=== PATIENT | female | born 1940 | race Caucasian/White ===

== ENCOUNTER 2016-12-01 04:36 | Emergency (ER) | payer OTHER, MEDICARE ==
[~2016-12-01 04:36] MED LIST: /AMIT25TA PO; /CELE20CA PO; /ESOM40CA PO; ACET650T PO; BENICAR PO; LIVA4TAB PO; METF-415 PO; TRAD5TAB PO
[2016-12-01 05:41] LABS: BASO % 0.8 % (0.0-1.0); EOS # 0.2 K/mm3 (0.0-0.50); EOS % 2.9 % (0.0-3.0); LARGE UNSTAINED CELL # 0.1 K/mm3 (0.0-0.4); LARGE UNSTAINED CELL % 2.2 % (0.0-4.0); LYMPH # 0.9 K/mm3 (1.5-4.5); LYMPH % 17.9 % (24.0-44.0); MEAN CORPUSCULAR HEMOGLOBIN 27.2 pg (27.0-33.0); MEAN CORPUSCULAR HGB CONC 33.3 g/dl (32.0-36.5); MEAN CORPUSCULAR VOLUME 81.5 fl (80.0-96.0); MONO # 0.4 K/mm3 (0.0-0.8); MONO % 6.8 % (0.0-5.0); NEUTROPHILS # 3.6 K/mm3 (1.8-7.7); NEUTROPHILS % 69.3 % (36.0-66.0); PLATELET COUNT, AUTOMATED 221 k/mm3 (150-450); RED CELL DISTRIBUTION WIDTH 13.7 % (11.5-14.5); WHITE BLOOD COUNT 5.2 K/mm3 (4.0-10.0)
[2016-12-01 06:07] LABS: ALBUMIN 3.9 GM/DL (3.2-5.2); ALBUMIN/GLOBULIN RATIO 1.15 (1.00-1.93); ALKALINE PHOSPHATASE 102 U/L (45-117); ALT/SGPT 18 U/L (12-78); AMYLASE 71 U/L (25-115); ANION GAP 9 MEQ/L (8-16); AST/SGOT 12 U/L (15-37); BILIRUBIN,DIRECT < 0.1 MG/DL (0.0-0.2); BILIRUBIN,TOTAL 0.4 MG/DL (0.2-1.0); BLOOD UREA NITROGEN 16 MG/DL (7-18); CARBON DIOXIDE LEVEL 27 MEQ/L (21-32); CHLORIDE LEVEL 103 MEQ/L (98-107); CREATININE FOR GFR 1.12 MG/DL (0.55-1.02); GLOMERULAR FILTRATION RATE 50.5 (>39); GLUCOSE, FASTING 167 MG/DL (83-110); POTASSIUM SERUM 3.7 MEQ/L (3.5-5.1); SODIUM LEVEL 139 MEQ/L (136-145); TOTAL PROTEIN 7.3 GM/DL (6.4-8.2)
[2016-12-01] MEDS ORDERED: ONDANSETRON 4MG/2ML VIAL (J2405) As Ordered ONE (06:20)
[2016-12-01] MEDS ORDERED: MORPHINE 4 MG/ML 1ML SYRINGE As Ordered ONE (06:21)
[2016-12-01] MEDS ORDERED: ISOVUE-370 76% 100ML VIAL (Q9967) As Ordered ONE (07:21)
[2016-12-01] MEDS ORDERED: GI COCKTAIL 50ML BTL(HYOSCYAMINE/MAALOX/LIDOCAINE VISCOUS)(1:3:1) As Ordered ONE (08:57)
[2016-12-01] MEDS ORDERED: PANTOPRAZOLE 40MG TAB (PROTONIX) As Ordered ONE (09:30)
--- NOTE | 2016-12-01 09:39 | EDDOCDS ---
Nurse's Notes [facility] Name: Karo Lopez Age: 76 yrs Sex: Female : 1940 Arrival Date: 12/01/2016 Time: 04:36 Bed 8 Private MD: Diagnosis: Abdominal and pelvic pain;Gastritis and duodenitis-rule out Presentation: 12/01 04:44 Presenting complaint: Patient states: Abdominal pain for 3 weeks from chest down to kmg1 pelvic bone. No vomiting. Diarrhea a couple of times. Hot and cold flashes. Suicide/Homicide risk assessment- the patient denies having any suicidal and/or homicidal ideations and does not present with any other emotional, behavioral or mental health complaints. 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 Transition of care:. 04:44 Acuity: MARIO Level 3 km 04:44 Method Of Arrival: Walkin/Carried/Asstd [facility] 09:37 Adult Sepsis Screening: The patient does not have new or worsening altered mentation. hs1 Patient's respiratory rate is less than 22. Systolic blood pressure is greater than 100. Patient has a qSOFA score of 0- Negative Sepsis Screen. Triage Assessment: 04:54 General: Appears uncomfortable, well nourished, well groomed, Behavior is appropriate kmg1 for age, cooperative. Pain: Location: abdomen Pain currently is 10 out of 10 on a pain scale. GI: Reports lower abdominal pain, upper abdominal pain. Historical: - Allergies: Codeine Sulfatehallucinations; Valium; - Home Meds: 1. metformin 1,000 mg Oral tab 1 tab 2 times per day (Last dose: 11/30/2016) 2. amitriptyline 25 mg Oral tab 1 tab once daily (Last dose: 11/30/2016) 3. Hydrochlorothiazide Oral 1 tab once daily (Last dose: 11/30/2016) 4. Plavix 75 mg Oral tab 1 tab once daily (Last dose: 11/30/2016) 5. aspirin 81 mg Oral chew 1 tab once daily (Last dose: 11/30/2016) 6. tramadol 50 mg Oral tab 1 tab every 4-6 hours as needed - PMHx: CVA; Pacemaker; Hypertension; Diabetes - NIDDM: controlled; - PSHx: Pacemaker placement; Stone reteival with stents; Carpal Tunnel Repair- Bilateral; Cataract Surgery- Bilateral; Left axilla lump excision; - Social history: Smoking status: Patient states former smoker of tobacco. No barriers to communication noted, The patient speaks fluent Mohawk, Speaks appropriately for age. - Family history: Not pertinent. - : The pt / caregiver states he / she is on anticoagulants: Plavix. Home medication list is obtained from the patient. - Exposure Risk Screening:: None identified. Screenin:37 Screening information is obtained from the patient. Fall risk: No risks identified. tm5 Assistance ADL's: requires no assistance with activities of daily living. Abuse/DV Screen: The patient / caregiver reports he/she is: not in a situation that causes fear, pain or injury. Nutritional screening: No deficits noted. Advance Directives: There is no active DNR order. home support is adequate. Assessment: 05:38 General: Appears in no apparent distress, Behavior is appropriate for age, cooperative. tm5 Pain: Location: abdomen Pain currently is 10 out of 10 on a pain scale. Quality of pain is described as crampy, sharp, Pain began 3 weeks ago. Neurological: Level of Consciousness is awake, alert, Oriented to person, place, time. Cardiovascular: Rhythm is sinus rhythm No ectopy. Respiratory: Airway is patent Respiratory effort is even, unlabored, Respiratory pattern is regular, symmetrical, Breath sounds are clear bilaterally. GI: Abdomen is non- distended Bowel sounds present X 4 quads. Abd is soft X 4 quads Abd is tender to palpation X 4 quads. : No deficits noted. Derm: Skin is pink, warm & dry. 06:47 General: pt stated that she hasn't had a good bowel movement in over a week or so . tm5 07:35 General: Appears in no apparent distress, Behavior is appropriate for age, cooperative. hs1 Cardiovascular: Rhythm is sinus rhythm No ectopy. Respiratory: No deficits noted. GI: Reports epigastric pain. : No deficits noted. Derm: Skin is pink, warm & dry. normal. 08:42 Reassessment: Patient appears in no apparent distress at this time. Neurological: No hs1 deficits noted. Cardiovascular: No deficits noted. Respiratory: Airway is patent Respiratory effort is even, unlabored, Respiratory pattern is regular, symmetrical. Derm: No deficits noted. 09:36 Reassessment: Patient appears in no apparent distress at this time. Patient denies pain hs1 at this time. Patient states feeling better. Patient states symptoms have improved. Derm: Skin is pink, warm & dry. normal. Vital Signs: 04:54 BP 135 / 79; Pulse 81; Resp 18; Temp 97.5(TE); Pulse Ox 98% on R/A; Weight 58.97 kg km (R); Height 5 ft. 0 in. (152.40 cm) (R); Pain 10/10; 06:07 BP 181 / 89 (auto/); tm5 06:07 Pulse 76 MON; Resp 18 S; Pulse Ox 99% on R/A; Pain 7/10; tm5 06:37 BP 171 / 80 (auto/); tm5 06:37 Pulse 70 MON; Resp 18 S; Pulse Ox 98% on R/A; tm5 07:07 BP 181 / 79 (auto/); hs1 07:07 Pulse 68 MON; Pulse Ox 96% ; hs1 08:14 Pulse 70 MON; Pulse Ox 97% ; hs1 08:15 BP 157 / 75 (auto/); Resp 18; hs1 04:54 Body Mass Index 25.39 (58.97 kg, 152.40 cm) [facility] Vitals: 04:54 Log In Time: December 01, 2016 at 04:39. [facility] ED Course: 04:38 Patient visited by Stephany Cheema Reg. hs2 04:38 Patient moved to Waiting hs2 04:46 Triage Initiated [facility] 04:57 Patient moved to 8 km 05:36 Patient visited by Marci Ramesh RN. tm5 05:36 -Blood Culture Sent. tm5 05:36 Amylase Sent. tm5 05:36 Basic Metabolic Profile Sent. tm5 05:36 CBC with Diff Sent. tm5 05:37 Cardiac Injury Profile Sent. tm5 05:37 Lipase Sent. tm5 05:37 Liver Profile Sent. tm5 05:37 Troponin Sent. tm5 05:37 Inserted saline lock: 20 gauge in left forearm and blood collected. The patient tm5 tolerated the procedure well. Labs/Blood culture drawn. 05:38 Awaiting ED physician evaluation. tm5 05:38 The patient / caregiver is instructed regarding the plan of care and ED course. Cardiac tm5 monitor on. Pulse ox on. NIBP on. Warm blanket given. Pillow given. 06:01 BLOOD CULTURES Sent. jmv 06:08 Mehdi Rodriguez DO is Attending Physician. mm11 06:08 Patient visited by Mehdi Rodriguez DO. mm11 06:17 Patient visited by Mehdi Rodriguez DO. mm11 06:45 [facility] Payment Agreement was scanned into [employer] and attached to record. hs2 06:50 Patient name changed from Karo\S\\S\Lopez\S\ to Karo\S\C\S\Lopez. EDMS 07:19 Patient visited by Mehdi Rodirguez DO. mm11 07:21 Patient visited by Donna Monet RN. hs1 07:21 Donna Monet RN is Primary Nurse. hs1 07:35 Urinalysis Sent. jrd 07:35 Urine Culture Sent. jrd 07:52 Patient visited by Donna Monet RN. hs1 08:41 Patient visited by Mehdi Rodriguez DO. mm11 09:21 Attending Physician role handed off by Mehdi Rodriguez DO ml 09:21 Marium Luna MD is Attending Physician. ml 09:37 Discontinued IV lock intact, bleeding controlled, pressure dressing applied, No hs1 redness/swelling at site. No procedures done that require assistance. Administered Medications: 06:25 Drug: morphine 4 mg [morphine 4 mg/mL intravenous cartridge (1 mL)] Route: IVP; Site: tm5 left forearm; 06:25 Drug: Ondansetron 4 mg [ondansetron HCl 2 mg/mL intravenous solution (2 mL)] Route: tm5 IVP; Site: left forearm; 09:00 Drug: GI Cocktail - (Alum-Mag Hydroxide-Simeth Suspension 225 mg-200 mg-25 mg/5 mL 30 hs1 ml, Lidocaine Liquid 2 % 10 ml, Hyoscyamine Liquid 10 ml) Route: PO; 09:35 Drug: Pantoprazole 40 mg [pantoprazole 40 mg tablet,delayed release (1 tabs)] Route: PO;hs1 Order Results: Lab Order: Amylase; SPEC'M 12/01/16 05:34 Test: AMYLASE; Value: 71; Range: 25-115; Units: U/L; Status: F Lab Order: Basic Metabolic Profile; SPEC'M 12/01/17 05:34 Test: GLUCOSE, FASTING; Value: 167; Range: 83-110; Abnormal: Above high normal; Units: MG/DL; Status: F Test: BLOOD UREA NITROGEN; Value: 16; Range: 7-18; Units: MG/DL; Status: F Test: CREATININE FOR GFR; Value: 1.12; Range: 0.55-1.02; Abnormal: Above high normal; Units: MG/DL; Status: F Test: GLOMERULAR FILTRATION RATE; Value: 50.5; Range: >39; Status: F Test: SODIUM LEVEL; Value: 139; Range: 136-145; Units: MEQ/L; Status: F Test: POTASSIUM SERUM; Value: 3.7; Range: 3.5-5.1; Units: MEQ/L; Status: F Test: CHLORIDE LEVEL; Value: 103; Range: 98-107; Units: MEQ/L; Status: F Test: CARBON DIOXIDE LEVEL; Value: 27; Range: 21-32; Units: MEQ/L; Status: F Test: ANION GAP; Value: 9; Range: 8-16; Units: MEQ/L; Status: F Test: CALCIUM LEVEL; Value: 10.0; Range: 8.8-10.2; Units: MG/DL; Status: F Test Note: ; Units are mL/min/1.73 m2 Chronic Kidney Disease Staging per NKF: Stage I & II GFR >=60 Normal to Mildly Decreased Stage III GFR 30-59 Moderately Decreased Stage IV GFR 15-29 Severely Decreased Stage V GFR <15 Very Little GFR Left ESRD GFR <15 on TRAFFIC SIGN ERECTION SUPERVISOR Lab Order: CBC with Diff; [facility]12/01/16 05:34 Test: WHITE BLOOD COUNT; Value: 5.2; Range: 4.0-10.0; Units: K/mm3; Status: F Test: RED BLOOD COUNT; Value: 5.09; Range: 4.00-5.40; Units: M/mm3; Status: F Test: HEMOGLOBIN; Value: 13.8; Range: 12.0-16.0; Units: g/dl; Status: F Test: HEMATOCRIT; Value: 41.4; Range: 36.0-47.0; Units: %; Status: F Test: MEAN CORPUSCULAR VOLUME; Value: 81.5; Range: 80.0-96.0; Units: fl; Status: F Test: MEAN CORPUSCULAR HEMOGLOBIN; Value: 27.2; Range: 27.0-33.0; Units: pg; Status: F Test: MEAN CORPUSCULAR HGB CONC; Value: 33.3; Range: 32.0-36.5; Units: g/dl; Status: F Test: RED CELL DISTRIBUTION WIDTH; Value: 13.7; Range: 11.5-14.5; Units: %; Status: F Test: PLATELET COUNT, AUTOMATED; Value: 221; Range: 150-450; Units: k/mm3; Status: F Test: NEUTROPHILS %; Value: 69.3; Range: 36.0-66.0; Abnormal: Above high normal; Units: %; Status: F Test: LYMPH %; Value: 17.9; Range: 24.0-44.0; Abnormal: Below low normal; Units: %; Status: F Test: MONO %; Value: 6.8; Range: 0.0-5.0; Abnormal: Above high normal; Units: %; Status: F Test: EOS %; Value: 2.9; Range: 0.0-3.0; Units: %; Status: F Test: BASO %; Value: 0.8; Range: 0.0-1.0; Units: %; Status: F Test: LARGE UNSTAINED CELL %; Value: 2.2; Range: 0.0-4.0; Units: %; Status: F Test: NEUTROPHILS #; Value: 3.6; Range: 1.8-7.7; Units: K/mm3; Status: F Test: LYMPH #; Value: 0.9; Range: 1.5-4.5; Abnormal: Below low normal; Units: K/mm3; Status: F Test: MONO #; Value: 0.4; Range: 0.0-0.8; Units: K/mm3; Status: F Test: EOS #; Value: 0.2; Range: 0.0-0.50; Units: K/mm3; Status: F Test: BASO #; Value: 0.0; Range: 0.0-0.2; Units: K/mm3; Status: F Test: LARGE UNSTAINED CELL #; Value: 0.1; Range: 0.0-0.4; Units: K/mm3; Status: F Lab Order: Cardiac Injury Profile; [facility]12/01/16 05:34 Test: CPK CREATINE PHOSPHOKINASE; Value: 62; Range: 26-192; Units: U/L; Status: F Test: CK-MB VALUE MASS; Value: 2.4; Range: 0.0-3.6; Units: NG/ML; Status: F Test: MB/CK RELATIVE INDEX; Value: 3.87; Range: < OR =4; Status: F Test Note: ; DIAGNOSIS CRITERIA MMB ng/ml Relative Index (RI) NON-AMI < or = 5 N/A [place] > 5 < or = 4 AMI > 5 > 4 Lab Order: Lipase; 12/01/16 05:34 Test: LIPASE; Value: 277; Range: 73-393; Units: U/L; Status: F Lab Order: Liver Profile; 12/01/16 05:34 Test: AST/SGOT; Value: 12; Range: 15-37; Abnormal: Below low normal; Units: U/L; Status: F Test: ALT/SGPT; Value: 18; Range: 12-78; Units: U/L; Status: F Test: ALKALINE PHOSPHATASE; Value: 102; Range: 45-117; Units: U/L; Status: F Test: BILIRUBIN,TOTAL; Value: 0.4; Range: 0.2-1.0; Units: MG/DL; Status: F Test: BILIRUBIN,DIRECT; Value: < 0.1; Range: 0.0-0.2; Units: MG/DL; Status: F Test: TOTAL PROTEIN; Value: 7.3; Range: 6.4-8.2; Units: GM/DL; Status: F Test: ALBUMIN; Value: 3.9; Range: 3.2-5.2; Units: GM/DL; Status: F Test: ALBUMIN/GLOBULIN RATIO; Value: 1.15; Range: 1.00-1.93; Status: F Lab Order: Troponin; 12/01/16 05:34 Test: TROPONIN I; Value: < 0.02; Range: < 0.10; Units: NG/ML; Status: F Test Note: ; Troponin I Reference Interval for Siemens Wrapp LOCI: 99th Percentile= 0.00-0.045 ng/ml Risk Stratification: <= 0.10 ng/ml Decreased Risk for Adverse Clinical Events. 0.10-1.50 ng/ml Increased Risk for Adverse Clinical Events. Evaluation of additional criterion and/or repeat testing in 2-6 hours is suggested to rule out myocardial damage. >= 1.50 ng/ml Indicative of Myocardial Injury. Lab Order: Urinalysis; SPEC'M 12/01/16 07:29 Test: APPEARANCE, URINE; Value: CLEAR; Range: CLEAR; Status: F Test: COLOR, URINE; Value: STRAW; Range: YELLOW; Status: F Test: PH,URINE; Value: 7.0; Range: 5.0-9.0; Units: UNITS; Status: F Test: SPECIFIC GRAVITY URINE AUTO; Value: 1.005; Range: 1.002-1.035; Status: F Test: PROTEIN, URINE AUTO; Value: NEGATIVE; Range: NEGATIVE; Units: mg/dL; Status: F Test: GLUCOSE, URINE (UA) AUTO; Value: NEGATIVE; Range: NEGATIVE; Units: mg/dL; Status: F Test: KETONE, URINE AUTO; Value: NEGATIVE; Range: NEGATIVE; Units: mg/dL; Status: F Test: UROBILINOGEN, URINE AUTO; Value: 0.2; Range: 0.0-2.0; Units: mg/dL; Status: F Test: BILIRUBIN, URINE AUTO; Value: NEGATIVE; Range: NEGATIVE; Status: F Test: NITRITE, URINE AUTO; Value: NEGATIVE; Range: NEGATIVE; Status: F Test: LEUKOCYTE ESTERASE, URINE AUTO; Value: NEGATIVE; Range: NEGATIVE; Status: F Test: BLOOD, URINE BLOOD; Value: NEGATIVE; Range: NEGATIVE; Status: F Test: WBC, URINE AUTO; Value: 0; Range: 0-3; Units: /HPF; Status: F Test: RBC, URINE AUTO; Value: 0; Range: 0-3; Units: /HPF; Status: F Test: BACTERIA, URINE AUTO; Value: 1+; Range: NEGATIVE; Abnormal: Above high normal; Status: F Test: SQUAMOUS EPITHELIAL CELL UR AU; Value: 0; Range: 0-6; Units: /HPF; Status: F Test: HYALINE CAST, URINE AUTO; Value: 0; Range: 0-1; Units: /LPF; Status: F Outcome: 09:25 Discharge ordered by Provider. 09:37 Discharge Assessment: Patient awake, alert and oriented x 3. No cognitive and/or hs1 functional deficits noted. Patient verbalized understanding of disposition instructions. patient administered narcotics - yes. Pt provided with safe discharge. The following High Risk Discharge criteria are identified: None. Discharged to home ambulatory. Condition: stable. Discharge instructions given to patient, Instructed on discharge instructions, follow up and referral plans. medication usage, Demonstrated understanding of instructions, medications, Pt was receptive of discharge instructions/ teaching. Prescriptions given X 1. CT Study completed. Property sent home with patient. 09:38 Patient left the ED. hs1 Signatures: Dispatcher [employer] EDMS Marium Luna MD MD Ramona Parish, RN RN kmg1 Mehdi Rodriguez, DO mm11 Donna Monet RN RN hs1 George Pedersen, GYPSUM CALCINER GYPSUM CALCINER d Stephany Cheema, Reg Reg hs2 Bear Kee, GYPSUM CALCINER GYPSUM CALCINER Marci Corea,RN RN tm5 MTDD
--- NOTE | 2016-12-01 09:39 | EDDOCDS ---
Physician Documentation [facility] Name: Karo Lopez Age: 76 yrs Sex: Female : 1940 Arrival Date: 12/01/2016 Time: 04:36 Bed 8 Private MD: Disposition: 12/01/16 09:25 Discharged to Home/Self Care. Impression: Abdominal and pelvic pain, Gastritis and duodenitis - rule out. - Condition is Stable. - Discharge Instructions: Abdominal Pain, Adult. - Prescriptions for Protonix 40 mg Oral Tablet - take 1 tablet by ORAL route once daily; 30 tablet. - Medication Reconciliation, Local Pharmacy Hours form. - Follow up: Private Physician; When: 1 - 2 days. - Problem is new. - Symptoms have improved. - Notes[facility]return if worsenig symtoms Historical: - Allergies: Codeine Sulfatehallucinations; Valium; - Home Meds: 1. metformin 1,000 mg Oral tab 1 tab 2 times per day (Last dose: 11/30/2016) 2. amitriptyline 25 mg Oral tab 1 tab once daily (Last dose: 11/30/2016) 3. Hydrochlorothiazide Oral 1 tab once daily (Last dose: 11/30/2016) 4. Plavix 75 mg Oral tab 1 tab once daily (Last dose: 11/30/2016) 5. aspirin 81 mg Oral chew 1 tab once daily (Last dose: 11/30/2016) 6. tramadol 50 mg Oral tab 1 tab every 4-6 hours as needed - PMHx: CVA; Pacemaker; Hypertension; Diabetes - NIDDM: controlled; - PSHx: Pacemaker placement; Stone reteival with stents; Carpal Tunnel Repair- Bilateral; Cataract Surgery- Bilateral; Left axilla lump excision; - Social history: Smoking status: Patient states former smoker of tobacco. No barriers to communication noted, The patient speaks fluent Chinese, Speaks appropriately for age. - Family history: Not pertinent. - : The pt / caregiver states he / she is on anticoagulants: Plavix. Home medication list is obtained from the patient. - Exposure Risk Screening:: None identified. Vital Signs: 12/01 04:54 BP 135 / 79; Pulse 81; Resp 18; Temp 97.5(TE); Pulse Ox 98% on R/A; Weight 58.97 kg / kmg1 130.01 lbs (R); Height 5 ft. 0 in. (152.40 cm) (R); Pain 10/10; 06:07 BP 181 / 89 (auto/); tm5 06:07 Pulse 76 MON; Resp 18 S; Pulse Ox 99% on R/A; Pain 7/10; tm5 06:37 BP 171 / 80 (auto/); tm5 06:37 Pulse 70 MON; Resp 18 S; Pulse Ox 98% on R/A; tm5 07:07 BP 181 / 79 (auto/); hs1 07:07 Pulse 68 MON; Pulse Ox 96% ; hs1 08:14 Pulse 70 MON; Pulse Ox 97% ; hs1 08:15 BP 157 / 75 (auto/); Resp 18; hs1 04:54 Body Mass Index 25.39 (58.97 kg, 152.40 cm) kmg1 MDM: 05:10 -Blood Culture (Adults Only), peripheral from different site, or from device/port/PICC mm11 etc. if present ordered. 05:10 IV Saline Lock ordered. mm11 05:10 Undress patient appropriately for examination ordered. mm11 05:11 Amylase Ordered. EDMS 05:11 Basic Metabolic Profile Ordered. EDMS 05:11 CBC with Diff Ordered. EDMS 05:11 Cardiac Injury Profile Ordered. EDMS 05:11 Lipase Ordered. EDMS 05:11 Liver Profile Ordered. EDMS 05:11 Troponin Ordered. EDMS 05:11 Urinalysis Ordered. EDMS 05:11 -Blood Culture Ordered. EDMS 05:11 Urine Culture Ordered. EDMS 05:12 NOTHING BY MOUTH+DIET ordered. EDMS 05:12 ECG WITH READING ER PHYS+CARDIAG ordered. EDMS 05:13 -Blood Culture (Adults Only), peripheral from different site, or from device/port/PICC jlm etc. if present complete. 05:14 BLOOD CULTURES Ordered. EDMS 06:09 CBC with Diff Reviewed. mm11 06:17 Basic Metabolic Profile Reviewed. mm11 06:17 Liver Profile Reviewed. mm11 06:17 Amylase Reviewed. mm11 06:17 Cardiac Injury Profile Reviewed. mm11 06:17 Lipase Reviewed. mm11 06:17 Troponin Reviewed. mm11 06:18 morphine 4 mg IVP every 30 minutes; Document pain score/vitals after each dose (Hold if mm11 SBP < 90mmHg) x2 ordered. 06:18 Ondansetron 4 mg IVP once ordered. mm11 06:45 Financial registration complete. hs2 06:45 [facility] Payment Agreement was scanned into [employer] and attached to record. hs2 07:14 CT ABD & PELVIS: IV Contrast Only Ordered. EDMS 08:32 Urinalysis Reviewed. mm11 08:41 GI Cocktail - (Alum-Mag Hydroxide-Simeth 30 ml, Lidocaine 10 ml, Hyoscyamine 10 ml) PO mm11 once; Pre-mixed 50mL unit dose ordered. 09:24 Pantoprazole 40 mg PO once ordered. ml Administered Medications: 06:25 Drug: morphine 4 mg [morphine 4 mg/mL intravenous cartridge (1 mL)] Route: IVP; Site: tm5 left forearm; 06:25 Drug: Ondansetron 4 mg [ondansetron HCl 2 mg/mL intravenous solution (2 mL)] Route: tm5 IVP; Site: left forearm; 09:00 Drug: GI Cocktail - (Alum-Mag Hydroxide-Simeth Suspension 225 mg-200 mg-25 mg/5 mL 30 hs1 ml, Lidocaine Liquid 2 % 10 ml, Hyoscyamine Liquid 10 ml) Route: PO; 09:35 Drug: Pantoprazole 40 mg [pantoprazole 40 mg tablet,delayed release (1 tabs)] Route: PO;hs1 Signatures: Dispatcher [employer] EDMS Marium Luna MD MD Ramona Parish, RN RN kmg1 Mehdi Rodriguez, DO mm11 Donna Monet RN RN hs1 Zaida Forrest, [employer] jl Stephany Cheema, Reg Reg hs2 Marci Ramesh,GREGORIO PERKINS tm5 The chart was reviewed and I authenticate all verbal orders and agree with the evaluation and treatment provided.Attachments: 06:45 [facility] hs[facility]
--- NOTE | 2016-12-01 12:41 | REP ---
CT ABDOMEN AND PELVIS WITH IV CONTRAST: 12/01/2016. Clinical history: Generalized abdominal pain. Prior renal stone disease. Technique: No oral contrast per request. Bolus of 100 mL Isovue 370 scanning through the abdomen pelvis with coronal and sagittal reconstructions. CT abdomen: Lung bases show some dependent atelectasis without infiltrate or effusion. Heart is not enlarged. There is no pericardial thickening or effusion but the left atrium is mildly prominent. Dual lead pacer is noted. I see no definite hiatal hernia. There is no hepatosplenomegaly, focal hepatic or splenic mass nor intrahepatic biliary dilatation. No adjacent ascites in the upper abdomen. The gallbladder shows no calcified stone or mass. Pancreas shows no mass, ductal dilatation, calcification, peripancreatic fluid or adenopathy. No infiltration of the peripancreatic fat. Adrenal glands unremarkable. Kidneys show lobation bilaterally without hydronephrosis, stones, cyst, solid mass or perinephric fluid. Extrarenal pelves are noted bilaterally. Ureters show normal course to the bladder without dilatation or stone on either side. The aorta has diffuse atherosclerotic calcifications but no aneurysm or dissection. No periaortic or other retroperitoneal pathologic sized lymphadenopathy. Small bowel loops are fluid filled without dilatation or inflammatory changes. Appendix is seen and normal. There are scattered diverticula in the colon without signs of diverticulitis. Lung window review shows no evidence of perforation or free air. Degenerative disc changes with vacuum phenomenon and L3-4 and L4-5 and fusion at L5-S1 disc level. There is a few millimeters of anterolisthesis of L4 on 5 due to facet arthritis. No spondylolysis. No compression deformities. Visualized ribs are intact. CT pelvis: The hips show degenerative changes with joint space narrowing and marginal osteophytes. No fracture or destructive lesion of the hips, acetabuli, ischia, iliac bones or sacrum. SI joints with minimal degenerative change. The left colon diverticulosis extending into the sigmoid but no sign of diverticulitis, colitis, stricture or mass. The bladder is only minimally filled therefore its wall thickness difficult to manager talent acquisition. There is no stone or mass. Uterus is diminutive with some calcifications and anteverted. No adnexal or other pelvic mass. There is no ventral or inguinal hernia nor pathologic sized inguinal adenopathy. Iliac and femoral vessels with vascular calcification but no occlusion. Impression: 1. Diverticulosis without diverticulitis. No abscess, ascites, mass or free air. 2. Vascular calcifications of the aorta and branches without aneurysm or occlusion. 3. Liver, spleen, gallbladder, pancreas, adrenal glands and kidneys without acute finding. 4. No hydronephrosis, renal or ureteral stone. Bladder nearly empty. 5. Degenerative disc changes and facet arthritis lumbar spine without compression deformity or destructive lesion. Signed by Regino Garcia MD 12/01/2016 07:17 P
--- NOTE | 2016-12-01 19:27 | ECGEPIP ---
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
--- NOTE | 2016-12-03 10:38 | EDDOCDS ---
Physician Documentation [facility] Name: Karo Lopez Age: 76 yrs Sex: Female : 1940 Arrival Date: 12/01/2016 Time: 04:36 Bed 8 Private MD: Disposition: 12/01/16 09:25 Discharged to Home/Self Care. Impression: Abdominal and pelvic pain, Gastritis and duodenitis - rule out. - Condition is Stable. - Discharge Instructions: Abdominal Pain, Adult. - Prescriptions for Protonix 40 mg Oral Tablet - take 1 tablet by ORAL route once daily; 30 tablet. - Medication Reconciliation, Local Pharmacy Hours form. - Follow up: Private Physician; When: 1 - 2 days. - Problem is new. - Symptoms have improved. - Notes[facility]return if worsenig symtoms Historical: - Allergies: Codeine Sulfatehallucinations; Valium; - Home Meds: 1. metformin 1,000 mg Oral tab 1 tab 2 times per day (Last dose: 11/30/2016) 2. amitriptyline 25 mg Oral tab 1 tab once daily (Last dose: 11/30/2016) 3. Hydrochlorothiazide Oral 1 tab once daily (Last dose: 11/30/2016) 4. Plavix 75 mg Oral tab 1 tab once daily (Last dose: 11/30/2016) 5. aspirin 81 mg Oral chew 1 tab once daily (Last dose: 11/30/2016) 6. tramadol 50 mg Oral tab 1 tab every 4-6 hours as needed - PMHx: CVA; Pacemaker; Hypertension; Diabetes - NIDDM: controlled; - PSHx: Pacemaker placement; Stone reteival with stents; Carpal Tunnel Repair- Bilateral; Cataract Surgery- Bilateral; Left axilla lump excision; - Social history: Smoking status: Patient states former smoker of tobacco. No barriers to communication noted, The patient speaks fluent American, Speaks appropriately for age. - Family history: Not pertinent. - : The pt / caregiver states he / she is on anticoagulants: Plavix. Home medication list is obtained from the patient. - Exposure Risk Screening:: None identified. Vital Signs: 12/01 04:54 BP 135 / 79; Pulse 81; Resp 18; Temp 97.5(TE); Pulse Ox 98% on R/A; Weight 58.97 kg / kmg1 130.01 lbs (R); Height 5 ft. 0 in. (152.40 cm) (R); Pain 10/10; 06:07 BP 181 / 89 (auto/); tm5 06:07 Pulse 76 MON; Resp 18 S; Pulse Ox 99% on R/A; Pain 7/10; tm5 06:37 BP 171 / 80 (auto/); tm5 06:37 Pulse 70 MON; Resp 18 S; Pulse Ox 98% on R/A; tm5 07:07 BP 181 / 79 (auto/); hs1 07:07 Pulse 68 MON; Pulse Ox 96% ; hs1 08:14 Pulse 70 MON; Pulse Ox 97% ; hs1 08:15 BP 157 / 75 (auto/); Resp 18; hs1 08:45 BP 161 / 77 (auto/); hs1 08:45 Pulse 72 MON; Pulse Ox 99% ; hs1 09:15 BP 185 / 88 (auto/); hs1 09:15 Pulse 72 MON; Resp 18; Temp 98.2(O); Pulse Ox 95% ; Pain 0/10; hs1 04:54 Body Mass Index 25.39 (58.97 kg, 152.40 cm) kmg1 MDM: 05:10 -Blood Culture (Adults Only), peripheral from different site, or from device/port/PICC mm11 etc. if present ordered. 05:10 IV Saline Lock ordered. mm11 05:10 Undress patient appropriately for examination ordered. mm11 05:11 Amylase Ordered. EDMS 05:11 Basic Metabolic Profile Ordered. EDMS 05:11 CBC with Diff Ordered. EDMS 05:11 Cardiac Injury Profile Ordered. EDMS 05:11 Lipase Ordered. EDMS 05:11 Liver Profile Ordered. EDMS 05:11 Troponin Ordered. EDMS 05:11 Urinalysis Ordered. EDMS 05:11 -Blood Culture Ordered. EDMS 05:11 Urine Culture Ordered. EDMS 05:12 NOTHING BY MOUTH+DIET ordered. EDMS 05:12 ECG WITH READING ER PHYS+CARDIAG ordered. EDMS 05:13 -Blood Culture (Adults Only), peripheral from different site, or from device/port/PICC jlm etc. if present complete. 05:14 BLOOD CULTURES Ordered. EDMS 06:09 CBC with Diff Reviewed. mm11 06:17 Basic Metabolic Profile Reviewed. mm11 06:17 Liver Profile Reviewed. mm11 06:17 Amylase Reviewed. mm11 06:17 Cardiac Injury Profile Reviewed. mm11 06:17 Lipase Reviewed. mm11 06:17 Troponin Reviewed. mm11 06:18 morphine 4 mg IVP every 30 minutes; Document pain score/vitals after each dose (Hold if mm11 SBP < 90mmHg) x2 ordered. 06:18 Ondansetron 4 mg IVP once ordered. mm11 06:45 Financial registration complete. hs2 06:45 [facility] Payment Agreement was scanned into [employer] and attached to record. hs2 07:14 CT ABD & PELVIS: IV Contrast Only Ordered. EDMS 08:32 Urinalysis Reviewed. mm11 08:41 GI Cocktail - (Alum-Mag Hydroxide-Simeth 30 ml, Lidocaine 10 ml, Hyoscyamine 10 ml) PO mm11 once; Pre-mixed 50mL unit dose ordered. 09:24 Pantoprazole 40 mg PO once ordered. ml 20:34 T-Sheet-- Draft Copy was scanned into [employer] and attached to record. klr 12/02 13:23 ECG/EKG was scanned into [employer] and attached to record. gb 13:24 Radiology Report was scanned into [employer] and attached to record. gb Administered Medications: 12/01 06:25 Drug: morphine 4 mg [morphine 4 mg/mL intravenous cartridge (1 mL)] Route: IVP; Site: tm5 left forearm; 06:25 Drug: Ondansetron 4 mg [ondansetron HCl 2 mg/mL intravenous solution (2 mL)] Route: tm5 IVP; Site: left forearm; 09:00 Drug: GI Cocktail - (Alum-Mag Hydroxide-Simeth Suspension 225 mg-200 mg-25 mg/5 mL 30 hs1 ml, Lidocaine Liquid 2 % 10 ml, Hyoscyamine Liquid 10 ml) Route: PO; 09:35 Drug: Pantoprazole 40 mg [pantoprazole 40 mg tablet,delayed release (1 tabs)] Route: PO;hs1 Signatures: Dispatcher [employer] EDMS Marium Luna MD MD Ramona Parish RN RN kmg1 Monse Woodruff, Reg Reg gb Mehdi Rodriguez, DO mm11 Donna Monet RN RN hs1 Zaida Forrest, Street Supervisor Unit jlm Stephany Cheema, Reg Reg hs2 Chiara Caballero TonyaRN RN tm5 The chart was reviewed and I authenticate all verbal orders and agree with the evaluation and treatment provided.Attachments: 06:45 [facility] Payment Agreement hs2 20:34 T-Sheet-- Draft Copy r 12/02 13:23 ECG/EKG gb Chart Complete MTDD
--- NOTE | 2016-12-03 10:38 | EDDOCDS ---
Physician Documentation [facility] Name: Karo Lopez Age: 76 yrs Sex: Female : 1940 Arrival Date: 12/01/2016 Time: 04:36 Bed 8 Private MD: Disposition: 12/01/16 09:25 Discharged to Home/Self Care. Impression: Abdominal and pelvic pain, Gastritis and duodenitis - rule out. - Condition is Stable. - Discharge Instructions: Abdominal Pain, Adult. - Prescriptions for Protonix 40 mg Oral Tablet - take 1 tablet by ORAL route once daily; 30 tablet. - Medication Reconciliation, Local Pharmacy Hours form. - Follow up: Private Physician; When: 1 - 2 days. - Problem is new. - Symptoms have improved. - Notes[facility]return if worsenig symtoms Historical: - Allergies: Codeine Sulfatehallucinations; Valium; - Home Meds: 1. metformin 1,000 mg Oral tab 1 tab 2 times per day (Last dose: 11/30/2016) 2. amitriptyline 25 mg Oral tab 1 tab once daily (Last dose: 11/30/2016) 3. Hydrochlorothiazide Oral 1 tab once daily (Last dose: 11/30/2016) 4. Plavix 75 mg Oral tab 1 tab once daily (Last dose: 11/30/2016) 5. aspirin 81 mg Oral chew 1 tab once daily (Last dose: 11/30/2016) 6. tramadol 50 mg Oral tab 1 tab every 4-6 hours as needed - PMHx: CVA; Pacemaker; Hypertension; Diabetes - NIDDM: controlled; - PSHx: Pacemaker placement; Stone reteival with stents; Carpal Tunnel Repair- Bilateral; Cataract Surgery- Bilateral; Left axilla lump excision; - Social history: Smoking status: Patient states former smoker of tobacco. No barriers to communication noted, The patient speaks fluent Moroccan, Speaks appropriately for age. - Family history: Not pertinent. - : The pt / caregiver states he / she is on anticoagulants: Plavix. Home medication list is obtained from the patient. - Exposure Risk Screening:: None identified. Vital Signs: 12/01 04:54 BP 135 / 79; Pulse 81; Resp 18; Temp 97.5(TE); Pulse Ox 98% on R/A; Weight 58.97 kg / kmg1 130.01 lbs (R); Height 5 ft. 0 in. (152.40 cm) (R); Pain 10/10; 06:07 BP 181 / 89 (auto/); tm5 06:07 Pulse 76 MON; Resp 18 S; Pulse Ox 99% on R/A; Pain 7/10; tm5 06:37 BP 171 / 80 (auto/); tm5 06:37 Pulse 70 MON; Resp 18 S; Pulse Ox 98% on R/A; tm5 07:07 BP 181 / 79 (auto/); hs1 07:07 Pulse 68 MON; Pulse Ox 96% ; hs1 08:14 Pulse 70 MON; Pulse Ox 97% ; hs1 08:15 BP 157 / 75 (auto/); Resp 18; hs1 08:45 BP 161 / 77 (auto/); hs1 08:45 Pulse 72 MON; Pulse Ox 99% ; hs1 09:15 BP 185 / 88 (auto/); hs1 09:15 Pulse 72 MON; Resp 18; Temp 98.2(O); Pulse Ox 95% ; Pain 0/10; hs1 04:54 Body Mass Index 25.39 (58.97 kg, 152.40 cm) kmg1 MDM: 05:10 -Blood Culture (Adults Only), peripheral from different site, or from device/port/PICC mm11 etc. if present ordered. 05:10 IV Saline Lock ordered. mm11 05:10 Undress patient appropriately for examination ordered. mm11 05:11 Amylase Ordered. EDMS 05:11 Basic Metabolic Profile Ordered. EDMS 05:11 CBC with Diff Ordered. EDMS 05:11 Cardiac Injury Profile Ordered. EDMS 05:11 Lipase Ordered. EDMS 05:11 Liver Profile Ordered. EDMS 05:11 Troponin Ordered. EDMS 05:11 Urinalysis Ordered. EDMS 05:11 -Blood Culture Ordered. EDMS 05:11 Urine Culture Ordered. EDMS 05:12 NOTHING BY MOUTH+DIET ordered. EDMS 05:12 ECG WITH READING ER PHYS+CARDIAG ordered. EDMS 05:13 -Blood Culture (Adults Only), peripheral from different site, or from device/port/PICC jlm etc. if present complete. 05:14 BLOOD CULTURES Ordered. EDMS 06:09 CBC with Diff Reviewed. mm11 06:17 Basic Metabolic Profile Reviewed. mm11 06:17 Liver Profile Reviewed. mm11 06:17 Amylase Reviewed. mm11 06:17 Cardiac Injury Profile Reviewed. mm11 06:17 Lipase Reviewed. mm11 06:17 Troponin Reviewed. mm11 06:18 morphine 4 mg IVP every 30 minutes; Document pain score/vitals after each dose (Hold if mm11 SBP < 90mmHg) x2 ordered. 06:18 Ondansetron 4 mg IVP once ordered. mm11 06:45 Financial registration complete. hs2 06:45 [facility] Payment Agreement was scanned into [employer] and attached to record. hs2 07:14 CT ABD & PELVIS: IV Contrast Only Ordered. EDMS 08:32 Urinalysis Reviewed. mm11 08:41 GI Cocktail - (Alum-Mag Hydroxide-Simeth 30 ml, Lidocaine 10 ml, Hyoscyamine 10 ml) PO mm11 once; Pre-mixed 50mL unit dose ordered. 09:24 Pantoprazole 40 mg PO once ordered. ml 20:34 T-Sheet-- Draft Copy was scanned into [employer] and attached to record. klr 12/02 13:23 ECG/EKG was scanned into [employer] and attached to record. gb 13:24 Radiology Report was scanned into [employer] and attached to record. gb Administered Medications: 12/01 06:25 Drug: morphine 4 mg [morphine 4 mg/mL intravenous cartridge (1 mL)] Route: IVP; Site: tm5 left forearm; 06:25 Drug: Ondansetron 4 mg [ondansetron HCl 2 mg/mL intravenous solution (2 mL)] Route: tm5 IVP; Site: left forearm; 09:00 Drug: GI Cocktail - (Alum-Mag Hydroxide-Simeth Suspension 225 mg-200 mg-25 mg/5 mL 30 hs1 ml, Lidocaine Liquid 2 % 10 ml, Hyoscyamine Liquid 10 ml) Route: PO; 09:35 Drug: Pantoprazole 40 mg [pantoprazole 40 mg tablet,delayed release (1 tabs)] Route: PO;hs1 Signatures: Dispatcher [employer] EDMS Marium Luna MD MD Ramona Parish RN RN kmg1 Monse Woodruff, Reg Reg gb Mehdi Rodriguez, DO mm11 Donna Mnoet RN RN hs1 Zaida Forrest, Marriage And Family Teacher Unit jlm Stephany Cheema, Reg Reg hs2 Chiara Caballero TonyaRN RN tm5 The chart was reviewed and I authenticate all verbal orders and agree with the evaluation and treatment provided.Attachments: 06:45 [facility] Payment Agreement hs2 20:34 T-Sheet-- Draft Copy r 12/02 13:23 ECG/EKG gb Chart Complete MTDD
--- NOTE | 2016-12-03 10:38 | EDDOCDS ---
Nurse's Notes [facility] Name: Demar Lopez Age: 76 yrs Sex: Female : 1940 Arrival Date: 12/01/2016 Time: 04:36 Bed 8 Private MD: Diagnosis: Abdominal and pelvic pain;Gastritis and duodenitis-rule out Presentation: 12/01 04:44 Presenting complaint: Patient states: Abdominal pain for 3 weeks from chest down to kmg1 pelvic bone. No vomiting. Diarrhea a couple of times. Hot and cold flashes. Suicide/Homicide risk assessment- the patient denies having any suicidal and/or homicidal ideations and does not present with any other emotional, behavioral or mental health complaints. Status: Patient is not a nursing surgical services director or dependent. Transition of care:. 04:44 Acuity: MARIO Level 3 km 04:44 Method Of Arrival: Walkin/Carried/Asstd [facility] 09:37 Adult Sepsis Screening: The patient does not have new or worsening altered mentation. hs1 Patient's respiratory rate is less than 22. Systolic blood pressure is greater than 100. Patient has a qSOFA score of 0- Negative Sepsis Screen. Triage Assessment: 04:54 General: Appears uncomfortable, well nourished, well groomed, Behavior is appropriate kmg1 for age, cooperative. Pain: Location: abdomen Pain currently is 10 out of 10 on a pain scale. GI: Reports lower abdominal pain, upper abdominal pain. Historical: - Allergies: Codeine Sulfatehallucinations; Valium; - Home Meds: 1. metformin 1,000 mg Oral tab 1 tab 2 times per day (Last dose: 11/30/2016) 2. amitriptyline 25 mg Oral tab 1 tab once daily (Last dose: 11/30/2016) 3. Hydrochlorothiazide Oral 1 tab once daily (Last dose: 11/30/2016) 4. Plavix 75 mg Oral tab 1 tab once daily (Last dose: 11/30/2016) 5. aspirin 81 mg Oral chew 1 tab once daily (Last dose: 11/30/2016) 6. tramadol 50 mg Oral tab 1 tab every 4-6 hours as needed - PMHx: CVA; Pacemaker; Hypertension; Diabetes - NIDDM: controlled; - PSHx: Pacemaker placement; Stone reteival with stents; Carpal Tunnel Repair- Bilateral; Cataract Surgery- Bilateral; Left axilla lump excision; - Social history: Smoking status: Patient states former smoker of tobacco. No barriers to communication noted, The patient speaks fluent Mongolian, Speaks appropriately for age. - Family history: Not pertinent. - : The pt / caregiver states he / she is on anticoagulants: Plavix. Home medication list is obtained from the patient. - Exposure Risk Screening:: None identified. Screenin:37 Screening information is obtained from the patient. Fall risk: No risks identified. tm5 Assistance ADL's: requires no assistance with activities of daily living. Abuse/DV Screen: The patient / caregiver reports he/she is: not in a situation that causes fear, pain or injury. Nutritional screening: No deficits noted. Advance Directives: There is no active DNR order. home support is adequate. Assessment: 05:38 General: Appears in no apparent distress, Behavior is appropriate for age, cooperative. tm5 Pain: Location: abdomen Pain currently is 10 out of 10 on a pain scale. Quality of pain is described as crampy, sharp, Pain began 3 weeks ago. Neurological: Level of Consciousness is awake, alert, Oriented to person, place, time. Cardiovascular: Rhythm is sinus rhythm No ectopy. Respiratory: Airway is patent Respiratory effort is even, unlabored, Respiratory pattern is regular, symmetrical, Breath sounds are clear bilaterally. GI: Abdomen is non- distended Bowel sounds present X 4 quads. Abd is soft X 4 quads Abd is tender to palpation X 4 quads. : No deficits noted. Derm: Skin is pink, warm & dry. 06:47 General: pt stated that she hasn't had a good bowel movement in over a week or so . tm5 07:35 General: Appears in no apparent distress, Behavior is appropriate for age, cooperative. hs1 Cardiovascular: Rhythm is sinus rhythm No ectopy. Respiratory: No deficits noted. GI: Reports epigastric pain. : No deficits noted. Derm: Skin is pink, warm & dry. normal. 08:42 Reassessment: Patient appears in no apparent distress at this time. Neurological: No hs1 deficits noted. Cardiovascular: No deficits noted. Respiratory: Airway is patent Respiratory effort is even, unlabored, Respiratory pattern is regular, symmetrical. Derm: No deficits noted. 09:36 Reassessment: Patient appears in no apparent distress at this time. Patient denies pain hs1 at this time. Patient states feeling better. Patient states symptoms have improved. Derm: Skin is pink, warm & dry. normal. Vital Signs: 04:54 BP 135 / 79; Pulse 81; Resp 18; Temp 97.5(TE); Pulse Ox 98% on R/A; Weight 58.97 kg [facility] (R); Height 5 ft. 0 in. (152.40 cm) (R); Pain 10/10; 06:07 BP 181 / 89 (auto/); tm5 06:07 Pulse 76 MON; Resp 18 S; Pulse Ox 99% on R/A; Pain 7/10; tm5 06:37 BP 171 / 80 (auto/); tm5 06:37 Pulse 70 MON; Resp 18 S; Pulse Ox 98% on R/A; tm5 07:07 BP 181 / 79 (auto/); hs1 07:07 Pulse 68 MON; Pulse Ox 96% ; hs1 08:14 Pulse 70 MON; Pulse Ox 97% ; hs1 08:15 BP 157 / 75 (auto/); Resp 18; hs1 08:45 BP 161 / 77 (auto/); hs1 08:45 Pulse 72 MON; Pulse Ox 99% ; hs1 09:15 BP 185 / 88 (auto/); hs1 09:15 Pulse 72 MON; Resp 18; Temp 98.2(O); Pulse Ox 95% ; Pain 0/10; hs1 04:54 Body Mass Index 25.39 (58.97 kg, 152.40 cm) [facility] Vitals: 04:54 Log In Time: December 01, 2016 at 04:39. [facility] ED Course: 04:38 Patient visited by Stephany Cheema, Reg. hs2 04:38 Patient moved to Waiting hs2 04:46 Triage Initiated [facility] 04:57 Patient moved to 8 [facility] 05:36 Patient visited by Marci Ramesh RN. tm5 05:36 -Blood Culture Sent. tm5 05:36 Amylase Sent. tm5 05:36 Basic Metabolic Profile Sent. tm5 05:36 CBC with Diff Sent. tm5 05:37 Cardiac Injury Profile Sent. tm5 05:37 Lipase Sent. tm5 05:37 Liver Profile Sent. tm5 05:37 Troponin Sent. tm5 05:37 Inserted saline lock: 20 gauge in left forearm and blood collected. The patient tm5 tolerated the procedure well. Labs/Blood culture drawn. 05:38 Awaiting ED physician evaluation. tm5 05:38 The patient / caregiver is instructed regarding the plan of care and ED course. Cardiac tm5 monitor on. Pulse ox on. NIBP on. Warm blanket given. Pillow given. 06:01 BLOOD CULTURES Sent. jmv 06:08 Joan Rodriguez DO is Attending Physician. mm11 06:08 Patient visited by Joan Rodriguez DO. mm11 06:17 Patient visited by Joan Rodriguez DO. mm11 06:45 [facility] Payment Agreement was scanned into [employer] and attached to record. hs2 06:50 Patient name changed from Demar\S\\S\Lopez\S\ to Demar\S\C\S\Lopez. EDMS 07:19 Patient visited by Joan Rodriguez DO. mm11 07:21 Patient visited by Donna Monet RN. hs1 07:21 Donna Monet RN is Primary Nurse. hs1 07:35 Urinalysis Sent. jrd 07:35 Urine Culture Sent. jrd 07:52 Patient visited by Donna Monet RN. hs1 08:41 Patient visited by Joan Rodriguez DO. mm11 09:21 Attending Physician role handed off by Joan Rodriguez DO ml 09:21 Marium Luna MD is Attending Physician. ml 09:37 Discontinued IV lock intact, bleeding controlled, pressure dressing applied, No hs1 redness/swelling at site. No procedures done that require assistance. 12:47 CT ABD & PELVIS: IV Contrast Only Returned. EDMS 19:33 EKG-ADULT Returned. EDMS 20:34 T-Sheet-- Draft Copy was scanned into [employer] and attached to record. klr 12/02 13:23 ECG/EKG was scanned into [employer] and attached to record. gb 13:24 Radiology Report was scanned into [employer] and attached to record. gb Administered Medications: 12/01 06:25 Drug: morphine 4 mg [morphine 4 mg/mL intravenous cartridge (1 mL)] Route: IVP; Site: tm5 left forearm; 06:25 Drug: Ondansetron 4 mg [ondansetron HCl 2 mg/mL intravenous solution (2 mL)] Route: tm5 IVP; Site: left forearm; 09:00 Drug: GI Cocktail - (Alum-Mag Hydroxide-Simeth Suspension 225 mg-200 mg-25 mg/5 mL 30 hs1 ml, Lidocaine Liquid 2 % 10 ml, Hyoscyamine Liquid 10 ml) Route: PO; 09:35 Drug: Pantoprazole 40 mg [pantoprazole 40 mg tablet,delayed release (1 tabs)] Route: PO;hs1 Order Results: Lab Order: -Blood Culture; SPEC'M 12/01/16 05:34 Test: BLOOD CULTURE; Value: No growth after 24 hours . All specimens observed; Status: F Test: BLOOD CULTURE; Value: for 5 days. Results final at that time.; Status: F Test: BLOOD CULTURE; Value: No Growth after 48 hours. All Specimens observed; Status: F Test: BLOOD CULTURE; Value: for 7 days. Results final at that time.; Status: F Lab Order: Amylase; [facility] 12/01/16 05:34 Test: AMYLASE; Value: 71; Range: 25-115; Units: U/L; Status: F Lab Order: Basic Metabolic Profile; SPEC'M 12/01/16 05:34 Test: GLUCOSE, FASTING; Value: 167; Range: 83-110; Abnormal: Above high normal; Units: MG/DL; Status: F Test: BLOOD UREA NITROGEN; Value: 16; Range: 7-18; Units: MG/DL; Status: F Test: CREATININE FOR GFR; Value: 1.12; Range: 0.55-1.02; Abnormal: Above high normal; Units: MG/DL; Status: F Test: GLOMERULAR FILTRATION RATE; Value: 50.5; Range: >39; Status: F Test: SODIUM LEVEL; Value: 139; Range: 136-145; Units: MEQ/L; Status: F Test: POTASSIUM SERUM; Value: 3.7; Range: 3.5-5.1; Units: MEQ/L; Status: F Test: CHLORIDE LEVEL; Value: 103; Range: 98-107; Units: MEQ/L; Status: F Test: CARBON DIOXIDE LEVEL; Value: 27; Range: 21-32; Units: MEQ/L; Status: F Test: ANION GAP; Value: 9; Range: 8-16; Units: MEQ/L; Status: F Test: CALCIUM LEVEL; Value: 10.0; Range: 8.8-10.2; Units: MG/DL; Status: F Test Note: ; Units are mL/min/1.73 m2 Chronic Kidney Disease Staging per NKF: Stage I & II GFR >=60 Normal to Mildly Decreased Stage III GFR 30-59 Moderately Decreased Stage IV GFR 15-29 Severely Decreased Stage V GFR <15 Very Little GFR Left ESRD GFR <15 on INCIDENT COORDINATOR Lab Order: CBC with Diff; SPEC'M 12/01/16 05:34 Test: WHITE BLOOD COUNT; Value: 5.2; Range: 4.0-10.0; Units: K/mm3; Status: F Test: RED BLOOD COUNT; Value: 5.09; Range: 4.00-5.40; Units: M/mm3; Status: F Test: HEMOGLOBIN; Value: 13.8; Range: 12.0-16.0; Units: g/dl; Status: F Test: HEMATOCRIT; Value: 41.4; Range: 36.0-47.0; Units: %; Status: F Test: MEAN CORPUSCULAR VOLUME; Value: 81.5; Range: 80.0-96.0; Units: fl; Status: F Test: MEAN CORPUSCULAR HEMOGLOBIN; Value: 27.2; Range: 27.0-33.0; Units: pg; Status: F Test: MEAN CORPUSCULAR HGB CONC; Value: 33.3; Range: 32.0-36.5; Units: g/dl; Status: F Test: RED CELL DISTRIBUTION WIDTH; Value: 13.7; Range: 11.5-14.5; Units: %; Status: F Test: PLATELET COUNT, AUTOMATED; Value: 221; Range: 150-450; Units: k/mm3; Status: F Test: NEUTROPHILS %; Value: 69.3; Range: 36.0-66.0; Abnormal: Above high normal; Units: %; Status: F Test: LYMPH %; Value: 17.9; Range: 24.0-44.0; Abnormal: Below low normal; Units: %; Status: F Test: MONO %; Value: 6.8; Range: 0.0-5.0; Abnormal: Above high normal; Units: %; Status: F Test: EOS %; Value: 2.9; Range: 0.0-3.0; Units: %; Status: F Test: BASO %; Value: 0.8; Range: 0.0-1.0; Units: %; Status: F Test: LARGE UNSTAINED CELL %; Value: 2.2; Range: 0.0-4.0; Units: %; Status: F Test: NEUTROPHILS #; Value: 3.6; Range: 1.8-7.7; Units: K/mm3; Status: F Test: LYMPH #; Value: 0.9; Range: 1.5-4.5; Abnormal: Below low normal; Units: K/mm3; Status: F Test: MONO #; Value: 0.4; Range: 0.0-0.8; Units: K/mm3; Status: F Test: EOS #; Value: 0.2; Range: 0.0-0.50; Units: K/mm3; Status: F Test: BASO #; Value: 0.0; Range: 0.0-0.2; Units: K/mm3; Status: F Test: LARGE UNSTAINED CELL #; Value: 0.1; Range: 0.0-0.4; Units: K/mm3; Status: F Lab Order: Cardiac Injury Profile; [facility] 05:34 Test: CPK CREATINE PHOSPHOKINASE; Value: 62; Range: 26-192; Units: U/L; Status: F Test: CK-MB VALUE MASS; Value: 2.4; Range: 0.0-3.6; Units: NG/ML; Status: F Test: MB/CK RELATIVE INDEX; Value: 3.87; Range: < OR =4; Status: F Test Note: ; DIAGNOSIS CRITERIA MMB ng/ml Relative Index (RI) NON-AMI < or = 5 N/A [place] > 5 < or = 4 AMI > 5 > 4 Lab Order: Lipase; [facility] 05:34 Test: LIPASE; Value: 277; Range: 73-393; Units: U/L; Status: F Lab Order: Liver Profile; [facility] 12/01/16 05:34 Test: AST/SGOT; Value: 12; Range: 15-37; Abnormal: Below low normal; Units: U/L; Status: F Test: ALT/SGPT; Value: 18; Range: 12-78; Units: U/L; Status: F Test: ALKALINE PHOSPHATASE; Value: 102; Range: 45-117; Units: U/L; Status: F Test: BILIRUBIN,TOTAL; Value: 0.4; Range: 0.2-1.0; Units: MG/DL; Status: F Test: BILIRUBIN,DIRECT; Value: < 0.1; Range: 0.0-0.2; Units: MG/DL; Status: F Test: TOTAL PROTEIN; Value: 7.3; Range: 6.4-8.2; Units: GM/DL; Status: F Test: ALBUMIN; Value: 3.9; Range: 3.2-5.2; Units: GM/DL; Status: F Test: ALBUMIN/GLOBULIN RATIO; Value: 1.15; Range: 1.00-1.93; Status: F Lab Order: Troponin; SPEC'M 12/01/16 05:34 Test: TROPONIN I; Value: < 0.02; Range: < 0.10; Units: NG/ML; Status: F Test Note: ; Troponin I Reference Interval for [employer] LOCI: 99th Percentile= 0.00-0.045 ng/ml Risk Stratification: <= 0.10 ng/ml Decreased Risk for Adverse Clinical Events. 0.10-1.50 ng/ml Increased Risk for Adverse Clinical Events. Evaluation of additional criterion and/or repeat testing in 2-6 hours is suggested to rule out myocardial damage. >= 1.50 ng/ml Indicative of Myocardial Injury. Lab Order: Urinalysis; SPEC'M 12/01/16 07:29 Test: APPEARANCE, URINE; Value: CLEAR; Range: CLEAR; Status: F Test: COLOR, URINE; Value: STRAW; Range: YELLOW; Status: F Test: PH,URINE; Value: 7.0; Range: 5.0-9.0; Units: UNITS; Status: F Test: SPECIFIC GRAVITY URINE AUTO; Value: 1.005; Range: 1.002-1.035; Status: F Test: PROTEIN, URINE AUTO; Value: NEGATIVE; Range: NEGATIVE; Units: mg/dL; Status: F Test: GLUCOSE, URINE (UA) AUTO; Value: NEGATIVE; Range: NEGATIVE; Units: mg/dL; Status: F Test: KETONE, URINE AUTO; Value: NEGATIVE; Range: NEGATIVE; Units: mg/dL; Status: F Test: UROBILINOGEN, URINE AUTO; Value: 0.2; Range: 0.0-2.0; Units: mg/dL; Status: F Test: BILIRUBIN, URINE AUTO; Value: NEGATIVE; Range: NEGATIVE; Status: F Test: NITRITE, URINE AUTO; Value: NEGATIVE; Range: NEGATIVE; Status: F Test: LEUKOCYTE ESTERASE, URINE AUTO; Value: NEGATIVE; Range: NEGATIVE; Status: F Test: BLOOD, URINE BLOOD; Value: NEGATIVE; Range: NEGATIVE; Status: F Test: WBC, URINE AUTO; Value: 0; Range: 0-3; Units: /HPF; Status: F Test: RBC, URINE AUTO; Value: 0; Range: 0-3; Units: /HPF; Status: F Test: BACTERIA, URINE AUTO; Value: 1+; Range: NEGATIVE; Abnormal: Above high normal; Status: F Test: SQUAMOUS EPITHELIAL CELL UR AU; Value: 0; Range: 0-6; Units: /HPF; Status: F Test: HYALINE CAST, URINE AUTO; Value: 0; Range: 0-1; Units: /LPF; Status: F Lab Order: Urine Culture; SPEC'M 12/01/16 07:29 Test: URINE CULTURE; Value: <EXTERNAL COMMENT eCWMed> FULL REPORT IN LAB NOTES (eCW and Medent).; Status: F Test: URINE CULTURE; Value: URINE CULTURE RESULT NO GROWTH; Status: F Lab Order: BLOOD CULTURES; SPEC'M 12/01/16 06:00 Test: BLOOD CULTURE; Value: No growth after 24 hours . All specimens observed; Status: F Test: BLOOD CULTURE; Value: for 5 days. Results final at that time.; Status: F Test: BLOOD CULTURE; Value: No Growth after 48 hours. All Specimens observed; Status: F Test: BLOOD CULTURE; Value: for 7 days. Results final at that time.; Status: F Radiology Order: EKG-ADULT Test: EKG-ADULT REASON FOR EXAMINATION: Abdomen Pain; Stationary ECG Study; [facility] - ED; ; Test Date: 2016-12-01; Pat Name: DEMAR HILARIOTT Department:; Room: -; Gender: F Protection Analyst: jane; : 1940 Requested By: JOAN Granados; Order Number: [id number] Reading MD: Marium Luna; Measurements; Intervals [place]; Rate: 78 P: 61; WY: 177 QRS: -84; QRSD: 173 T: 84; QT: 435; QTc: 497; Interpretive Statements; ELECTRONIC VENTRICULAR PACEMAKER; ABNORMAL RHYTHM ECG; ; NO OLD ECG FOR COMPARISON; Electronically Signed On 12-01-2016 19:27:23 EST by Marium Luna; Radiology Order: CT ABD & PELVIS: IV Contrast Only Test: CT ABD & PELVIS: IV Contrast Only REASON FOR EXAMINATION: Abdomen Pain; CT ABDOMEN AND PELVIS WITH IV CONTRAST: 12/01/2016.; ; Clinical history: Generalized abdominal pain. Prior renal stone disease.; ; Technique: No oral contrast per request. Bolus of 100 mL Isovue 370 scanning; through the abdomen pelvis with coronal and sagittal reconstructions.; ; CT abdomen: Lung bases show some dependent atelectasis without infiltrate or; effusion. Heart is not enlarged. There is no pericardial thickening or effusion; but the left atrium is mildly prominent. Dual lead pacer is noted. I see no; definite hiatal hernia. There is no hepatosplenomegaly, focal hepatic or splenic; mass nor intrahepatic biliary dilatation. No adjacent ascites in the upper; abdomen. The gallbladder shows no calcified stone or mass. Pancreas shows no; mass, ductal dilatation, calcification, peripancreatic fluid or adenopathy. No; infiltration of the peripancreatic fat. Adrenal glands unremarkable. Kidneys; show lobation bilaterally without hydronephrosis, stones, cyst, solid mass; or perinephric fluid. Extrarenal pelves are noted bilaterally. Ureters show; normal course to the bladder without dilatation or stone on either side. The; aorta has diffuse atherosclerotic calcifications but no aneurysm or dissection.; No periaortic or other retroperitoneal pathologic sized lymphadenopathy. Small; bowel loops are fluid filled without dilatation or inflammatory changes. Appendix; is seen and normal. There are scattered diverticula in the colon without signs; of diverticulitis. Lung window review shows no evidence of perforation or free; air. Degenerative disc changes with vacuum phenomenon and L3-4 and L4-5 and; fusion at L5-S1 disc level. There is a few millimeters of anterolisthesis of L4; on 5 due to facet arthritis. No spondylolysis. No compression deformities.; Visualized ribs are intact.; ; CT pelvis: The hips show degenerative changes with joint space narrowing and; marginal osteophytes. No fracture or destructive lesion of the hips, acetabuli,; ischia, iliac bones or sacrum. SI joints with minimal degenerative change. The; left colon diverticulosis extending into the sigmoid but no sign of; diverticulitis, colitis, stricture or mass. The bladder is only minimally filled; therefore its wall thickness difficult to employee benefits insurance agent. There is no stone or mass.; Uterus is diminutive with some calcifications and anteverted. No adnexal or; other pelvic mass. There is no ventral or inguinal hernia nor pathologic sized; inguinal adenopathy. Iliac and femoral vessels with vascular calcification but; no occlusion.; ; Impression:; ; 1. Diverticulosis without diverticulitis. No abscess, ascites, mass or free; air.; ; 2. Vascular calcifications of the aorta and branches without aneurysm or; occlusion.; ; 3. Liver, spleen, gallbladder, pancreas, adrenal glands and kidneys without; acute finding.; ; 4. No hydronephrosis, renal or ureteral stone. Bladder nearly empty.; ; 5. Degenerative disc changes and facet arthritis lumbar spine without; compression deformity or destructive lesion.; ; ; Signed by; Regino Garcia MD 12/01/2016 07:17 P; Outcome: 09:25 Discharge ordered by Provider. ml 09:37 Discharge Assessment: Patient awake, alert and oriented x 3. No cognitive and/or hs1 functional deficits noted. Patient verbalized understanding of disposition instructions. patient administered narcotics - yes. Pt provided with safe discharge. The following High Risk Discharge criteria are identified: None. Discharged to home ambulatory. Condition: stable. Discharge instructions given to patient, Instructed on discharge instructions, follow up and referral plans. medication usage, Demonstrated understanding of instructions, medications, Pt was receptive of discharge instructions/ teaching. Prescriptions given X 1. CT Study completed. Property sent home with patient. 09:38 Patient left the ED. hs1 Signatures: Dispatcher [employer] EDMS Marium Luna MD MD ml Ramona Parish, GREGORIO RN kmg1 Monse Woodruff, [place] Reg Joan Rodriguez, DO mm11 Donna Monet, RN RN hs1 George Pedersen, ICE CREAM SERVER ICE CREAM SERVER jrd Stephany Cheema, Reg Reg hs2 Chiara Caballero Jose, ICE CREAM SERVER ICE CREAM SERVER jmv Marci Ramesh,RN RN tm5 Chart Complete MTDD
== END 2016-12-01 09:38 | disposition home or self-care (01) ==
LOC: M ED 04:36
DX: R10.9 Unspecified abdominal pain (principal); I63.9 Cerebral infarction, unspecified; Z95.0 Presence of cardiac pacemaker; I10 Essential (primary) hypertension; E11.9 Type 2 diabetes mellitus without complications; Z87.891 Personal history of nicotine dependence; Z79.02 Long term (current) use of antithrombotics/antiplatelets; Z79.82 Long term (current) use of aspirin; Z79.899 Other long term (current) drug therapy; Z88.5 Allergy status to narcotic agent; Z88.8 Allergy status to other drugs, medicaments and biological substances
CPT/HCPCS: 36415; 74177; 80048; 80076; 81001; 82150; 82550; 82553; 83690; 85025; 87040; 87076; 87086; 93005; 96374; 96375; 99285; J2405; Q9967

== ENCOUNTER → 2017-03-20 | Outpatient (REF) | payer OTHER, MEDICARE ==
[2017-03-20 17:15] LABS: BASO # 0.1 K/mm3 (0.0-0.2); EOS # 0.3 K/mm3 (0.0-0.50); EOS % 5.5 % (0.0-3.0); LARGE UNSTAINED CELL # 0.1 K/mm3 (0.0-0.4); LARGE UNSTAINED CELL % 1.6 % (0.0-4.0); LYMPH % 18.8 % (24.0-44.0); MEAN CORPUSCULAR HEMOGLOBIN 28.9 pg (27.0-33.0); MEAN CORPUSCULAR HGB CONC 33.7 g/dl (32.0-36.5); MEAN CORPUSCULAR VOLUME 85.9 fl (80.0-96.0); MONO # 0.3 K/mm3 (0.0-0.8); MONO % 5.8 % (0.0-5.0); NEUTROPHILS # 3.4 K/mm3 (1.8-7.7); NEUTROPHILS % 66.2 % (36.0-66.0); PLATELET COUNT, AUTOMATED 221 k/mm3 (150-450); RED CELL DISTRIBUTION WIDTH 13.8 % (11.5-14.5); WHITE BLOOD COUNT 5.1 K/mm3 (4.0-10.0)
[2017-03-20 17:42] LABS: ALBUMIN 3.7 GM/DL (3.2-5.2); ALBUMIN/GLOBULIN RATIO 1.19 (1.00-1.93); ALKALINE PHOSPHATASE 96 U/L (45-117); ALT/SGPT 26 U/L (12-78); ANION GAP 7 MEQ/L (8-16); AST/SGOT 16 U/L (15-37); BILIRUBIN,TOTAL 0.4 MG/DL (0.2-1.0); BLOOD UREA NITROGEN 22 MG/DL (7-18); CALCIUM LEVEL 9.4 MG/DL (8.8-10.2); CARBON DIOXIDE LEVEL 29 MEQ/L (21-32); CHLORIDE LEVEL 102 MEQ/L (98-107); CHOLESTEROL LEVEL 230 MG/DL (<200); CREATININE FOR GFR 1.13 MG/DL (0.55-1.02); GLOMERULAR FILTRATION RATE 49.8 (>39); GLUCOSE, FASTING 154 MG/DL (83-110); POTASSIUM SERUM 4.1 MEQ/L (3.5-5.1); SODIUM LEVEL 138 MEQ/L (136-145); THYROXINE (T4) 9.8 UG/DL (4.5-12.0); TOTAL PROTEIN 6.8 GM/DL (6.4-8.2); TRIGLYCERIDES LEVEL 266 MG/DL (<150)
[2017-03-20 18:05] LABS: ERYTHROCYTE SEDIMENTATION RATE 21 mm/hr (0-30)
== END ==
LOC: M SFHCCLAY 11:13
PROVIDERS: ATTEND Family Medicine
DX: I73.00 Raynaud's syndrome without gangrene (principal); E78.2 Mixed hyperlipidemia; R94.6 Abnormal results of thyroid function studies

== ENCOUNTER → 2017-04-17 | Outpatient (REF) | payer OTHER, MEDICARE | LOC: M SFHCCLAY 14:59 | PROVIDERS: ATTEND Family Medicine | DX: E03.9 Hypothyroidism, unspecified (principal) ==

== ENCOUNTER → 2017-07-18 | Outpatient (REF) | payer OTHER, MEDICARE ==
[2017-07-18 20:00] LABS: ALBUMIN 3.4 GM/DL (3.2-5.2); BILIRUBIN,TOTAL 0.4 MG/DL (0.2-1.0); CALCIUM LEVEL 9.6 MG/DL (8.8-10.2); CREATININE FOR GFR 1.23 MG/DL (0.55-1.02); GLOMERULAR FILTRATION RATE 45.2 (>39); POTASSIUM SERUM 3.9 MEQ/L (3.5-5.1); TOTAL PROTEIN 6.8 GM/DL (6.4-8.2)
== END ==
LOC: M SFHCCLAY 11:16
PROVIDERS: ATTEND Family Medicine
DX: E11.9 Type 2 diabetes mellitus without complications (principal); E03.9 Hypothyroidism, unspecified; I10 Essential (primary) hypertension

== ENCOUNTER → 2017-12-15 | Outpatient (REF) | payer OTHER, MEDICARE ==
[2017-12-16 11:48] LABS: BASO # 0.1 10^3/uL (0.0-0.2); BASO % 1.4 % (0.0-1.0); EOS # 0.3 10^3/uL (0.0-0.50); EOS % 4.3 % (0.0-3.0); HEMATOCRIT 37.1 % (36.0-47.0); HEMOGLOBIN 12.3 g/dl (12.0-16.0); IMMATURE GRANULOCYTE % 0.2 % (0-3.0); LYMPH # 1.1 10^3/uL (1.5-4.5); LYMPH % 18.5 % (24.0-44.0); MEAN CORPUSCULAR HEMOGLOBIN 27.6 pg (27.0-33.0); MEAN CORPUSCULAR HGB CONC 33.2 g/dl (32.0-36.5); MEAN CORPUSCULAR VOLUME 83.2 fl (80.0-96.0); MONO # 0.5 10^3/uL (0.0-0.8); MONO % 8.7 % (0.0-5.0); NEUTROPHILS # 3.9 10^3/uL (1.8-7.7); NEUTROPHILS % 66.9 % (36.0-66.0); PLATELET COUNT, AUTOMATED 266 10^3/uL (150-450); RED BLOOD COUNT 4.46 10^6/uL (4.00-5.40); RED CELL DISTRIBUTION WIDTH 13.3 % (11.5-14.5); WHITE BLOOD COUNT 5.8 10^3/uL (4.0-10.0)
[2017-12-16 12:08] LABS: ALKALINE PHOSPHATASE 89 U/L (45-117); ALT/SGPT 20 U/L (12-78); ANION GAP 8 MEQ/L (8-16); AST/SGOT 13 U/L (7-37); BILIRUBIN,TOTAL 0.3 MG/DL (0.2-1.0); BLOOD UREA NITROGEN 24 MG/DL (7-18); CALCIUM LEVEL 9.3 MG/DL (8.8-10.2); CARBON DIOXIDE LEVEL 29 MEQ/L (21-32); CHLORIDE LEVEL 100 MEQ/L (98-107); CREATININE FOR GFR 1.28 MG/DL (0.55-1.30); GLOMERULAR FILTRATION RATE 43.2 (>39); GLUCOSE, FASTING 258 MG/DL (70-100); POTASSIUM SERUM 3.6 MEQ/L (3.5-5.1); SODIUM LEVEL 137 MEQ/L (136-145)
[2017-12-16 12:09] LABS: ALBUMIN 3.6 GM/DL (3.2-5.2); ALBUMIN/GLOBULIN RATIO 1.09 (1.00-1.93); TOTAL PROTEIN 6.9 GM/DL (6.4-8.2)
== END ==
LOC: M SFHCCLAY 14:50
DX: R10.84 Generalized abdominal pain (principal); R10.31 Right lower quadrant pain

== ENCOUNTER → 2017-12-15 | Outpatient (REF) | payer OTHER, MEDICARE | LOC: M SFHCCLAY 12-16 12:10 | DX: R10.84 Generalized abdominal pain (principal) ==

== ENCOUNTER → 2018-01-16 | Outpatient (REF) | payer OTHER, MEDICARE ==
[2018-01-16 16:42] LABS: ESTIMATED AVERAGE GLUCOSE 171 MG/DL (60-110); HEMOGLOBIN A1c 7.6 %
[2018-01-16 16:46] LABS: ALBUMIN 3.7 GM/DL (3.2-5.2); ALBUMIN/GLOBULIN RATIO 1.09 (1.00-1.93); ALKALINE PHOSPHATASE 78 U/L (45-117); ALT/SGPT 19 U/L (12-78); ANION GAP 6 MEQ/L (8-16); AST/SGOT 19 U/L (7-37); BILIRUBIN,TOTAL 0.4 MG/DL (0.2-1.0); BLOOD UREA NITROGEN 27 MG/DL (7-18); CALCIUM LEVEL 9.4 MG/DL (8.8-10.2); CARBON DIOXIDE LEVEL 28 MEQ/L (21-32); CHLORIDE LEVEL 103 MEQ/L (98-107); CHOLESTEROL LEVEL 224 MG/DL (<200); CHOLESTEROL RISK RATIO 4.392 (<5); CREATININE FOR GFR 1.25 MG/DL (0.55-1.30); GLOMERULAR FILTRATION RATE 44.4 (>39); GLUCOSE, FASTING 179 MG/DL (70-100); HDL CHOLESTEROL 51 MG/DL (>40); LDL CHOLESTEROL 108.2 MG/DL (<100); NON-HDL-C 173 MG/DL; POTASSIUM SERUM 4.2 MEQ/L (3.5-5.1); SODIUM LEVEL 137 MEQ/L (136-145); TOTAL PROTEIN 7.1 GM/DL (6.4-8.2); TRIGLYCERIDES LEVEL 324 MG/DL (<150)
== END ==
LOC: M SFHCCLAY 10:59
DX: E78.2 Mixed hyperlipidemia (principal); E11.9 Type 2 diabetes mellitus without complications; E03.9 Hypothyroidism, unspecified

== ENCOUNTER → 2018-08-13 | Outpatient (REF) | payer OTHER, MEDICARE ==
[2018-08-13 17:10] LABS: ESTIMATED AVERAGE GLUCOSE 160 MG/DL (60-110); HEMOGLOBIN A1c 7.2 %
[2018-08-13 17:18] LABS: ALBUMIN 3.8 GM/DL (3.2-5.2); ALBUMIN/GLOBULIN RATIO 1.12 (1.00-1.93); ALKALINE PHOSPHATASE 81 U/L (45-117); ALT/SGPT 24 U/L (12-78); ANION GAP 9 MEQ/L (8-16); AST/SGOT 16 U/L (7-37); BILIRUBIN,TOTAL 0.4 MG/DL (0.2-1.0); BLOOD UREA NITROGEN 24 MG/DL (7-18); CALCIUM LEVEL 11.6 MG/DL (8.8-10.2); CARBON DIOXIDE LEVEL 27 MEQ/L (21-32); CHLORIDE LEVEL 102 MEQ/L (98-107); CHOLESTEROL LEVEL 232 MG/DL (<200); CHOLESTEROL RISK RATIO 4.142 (<5); GLOMERULAR FILTRATION RATE 42.3 (>39); GLUCOSE, FASTING 131 MG/DL (70-100); HDL CHOLESTEROL 56 MG/DL (>40); LDL CHOLESTEROL 114 MG/DL (<100); NON-HDL-C 176 MG/DL; POTASSIUM SERUM 4.2 MEQ/L (3.5-5.1); SODIUM LEVEL 138 MEQ/L (136-145); TOTAL PROTEIN 7.2 GM/DL (6.4-8.2); TRIGLYCERIDES LEVEL 310 MG/DL (<150)
== END ==
LOC: M SFHCCLAY 11:17
DX: E11.9 Type 2 diabetes mellitus without complications (principal); E78.2 Mixed hyperlipidemia; E03.9 Hypothyroidism, unspecified

== ENCOUNTER → 2018-11-24 | Outpatient (REF) | payer OTHER, MEDICARE ==
[2018-11-24 18:49] LABS: ALBUMIN 3.6 GM/DL (3.2-5.2); BILIRUBIN,TOTAL 0.3 MG/DL (0.2-1.0); CALCIUM LEVEL 9.6 MG/DL (8.8-10.2); CREATININE FOR GFR 1.32 MG/DL (0.55-1.30); GLOMERULAR FILTRATION RATE 41.5 (>39); POTASSIUM SERUM 3.9 MEQ/L (3.5-5.1); THYROID STIMULATING HORMONE 5.62 uIU/ML (0.358-3.740); TOTAL PROTEIN 6.7 GM/DL (6.4-8.2)
[2018-11-24 19:03] LABS: HEMOGLOBIN A1c 7.1 %
== END ==
LOC: M SFHCCLAY 11:01
PROVIDERS: ATTEND Family Medicine
DX: E11.9 Type 2 diabetes mellitus without complications (principal); E03.9 Hypothyroidism, unspecified

== ENCOUNTER → 2019-06-29 | Outpatient (REF) | payer OTHER, MEDICARE ==
[~2019-06-29] MED LIST changes: -/AMIT25TA PO; -/CELE20CA PO; -/ESOM40CA PO; +AMIT1TAB11 PO; +CELE1CAP4 PO; +NEXI1CAP3 PO
[2019-06-29 18:34] LABS: ALBUMIN 3.8 GM/DL (3.2-5.2); BILIRUBIN,TOTAL 0.3 MG/DL (0.2-1.0); CALCIUM LEVEL 9.9 MG/DL (8.8-10.2); CREATININE FOR GFR 1.36 MG/DL (0.55-1.30); POTASSIUM SERUM 4.6 MEQ/L (3.5-5.1); THYROID STIMULATING HORMONE 0.552 uIU/ML (0.358-3.740)
[2019-06-29 19:28] LABS: HEMOGLOBIN A1c 7.1 %
== END ==
LOC: M SFHCCLAY 11:11
PROVIDERS: ATTEND Family Medicine
DX: E11.9 Type 2 diabetes mellitus without complications (principal); E03.9 Hypothyroidism, unspecified

== ENCOUNTER → 2019-07-12 | Outpatient (REF) | payer OTHER, MEDICARE | LOC: M SFHCCLAY 13:47 | PROVIDERS: ATTEND Family Medicine | DX: L98.9 Disorder of the skin and subcutaneous tissue, unspecified (principal) ==

== ENCOUNTER → 2019-07-13 | Outpatient (CLI) | payer OTHER, MEDICARE ==
[~2019-07-13] MED LIST changes: +E-Z-GAS II EFFERVESCENT PACKET (SODIUM BICARB./CITRIC ACID/SIMETHICONE) As Ordered ONE; +E-Z-HD 98% w/w 340GM SUSP BTL As Ordered ONE; +E-Z-PAQUE 96% w/w SUSP 176GM BTL As Ordered ONE
--- NOTE | 2019-07-13 14:37 | REP ---
Examination Requested: Esophagram Barium Swallow Reason For Exam/Comment: Oral pharyngeal dysphasia Esophagram: The procedure was performed LISANDRA Denise, under the direct supervision of Dr. Frazier. The images were reviewed with Dr. Frazier. A single PA chest x-ray is submitted as a radiology specialist film. The superior mediastinal structures are midline. The heart size is within normal limits. The lungs are clear. There is a pacemaker. There are two surgical clips in the left breast. Liquid barium and gas producing granules were given in the erect position as well as liquid barium in the prone oblique position, in order to perform a double contrast esophagram examination. Oral and pharyngeal stages of the examination were unremarkable. Cervical vertebral bodies 2-4 are fused both anteriorly and posteriorly. There is an anterior C4-5 osteophyte indenting the posterior border of the esophagus. 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 There is question of a small developing Zenker's diverticulum. Esophageal transport is efficient and there is no esophagitis, stricture, or mucosal ring noted. However tertiary contractions were visualized throughout the exam. There is no hiatal hernia noted. Gastroesophageal reflux was not observed. Impression: 1. C4-5 osteophyte indenting posterior border of the esophagus. 2. Cricopharyngeal hyperplasia. 3. Question of a small developing Zenker's. 4. Tertiary contractions. 0.3 minutes of fluoroscopy time was utilized for this procedure. Some fluoroscopic images are performed with last image hold technology. These images require no additional radiation. Reviewed by LISANDRA Chino 07/13/2019 12:08 P Electronically Signed by Nikhil Frazier MD 07/13/2019 02:28 P
== END ==
LOC: M RAD 08:28
PROVIDERS: ATTEND Family Medicine
DX: R13.12 Dysphagia, oropharyngeal phase (principal)